=== PATIENT | female | born 1945 | race Caucasian/White ===

== ENCOUNTER 2020-04-08 12:50 | Outpatient (CLI) | payer MEDICARE, BC, SELFPAY ==
[2020-04-08 14:21] LABS: Basophils # 0.1 10^3/uL (0.0-0.1); Basophils % 0.6 %; Eosinophils # 0.5 10^3/uL (0.0-0.8); Eosinophils % 5.1 %; Hematocrit 44.9 % (37.0-47.0); Hemoglobin 13.6 g/dL (11.5-15.3); Lymphocytes # 2.1 10^3/uL (0.8-4.8); Lymphocytes % 24.1 %; Mean Corpuscular HGB Conc 30.3 g/dL (30.0-36.0); Mean Corpuscular Hemoglobin 30.5 pg (28.0-34.0); Mean Corpuscular Volume 100.7 fL (81-99); Mean Platelet Volume 10.3 fL (7.4-10.4); Monocytes # 0.9 10^3/uL (0.2-0.9); Monocytes % 9.9 %; Neutrophils # 5.3 10^3/uL (1.8-7.7); Neutrophils % 59.7 %; Nucleated Red Blood Cells % 0 %; Platelet Count 304 10^3/cmm (130-400); Red Blood Count 4.46 10^6/uL (4.1-5.3); Red Cell Distribution Width 15.1 % (12.1-15.1); White Blood Count 8.9 10^3/uL (4.0-10.0)
[2020-04-08 15:03] LABS: Carcinoembryonic Antigen 3.8 ng/mL (0.0-4.7)
[2020-04-08 15:14] LABS: Alanine Aminotransferase 15 U/L (0-33); Albumin Level 4.2 g/dL (3.5-5.2); Alkaline Phosphatase 83 IU/L (35-105); Anion Gap 19.6 (5-19); Aspartate Amino Transferase 25 U/L (0-32); Blood Urea Nitrogen 18 mg/dL (8-23); Calcium 9.7 mg/dL (8.5-10.5); Carbon Dioxide 25 mmol/L (22-29); Chloride 98 mmol/L (98-107); Globulin 3.5 g/dL (1.3-4.6); Glucose 132 mg/dL (65-115); Osmolality Calculated 284 mOsm/kg (285-295); Potassium 4.6 mmol/L (3.5-5.1); Sodium 138 mmol/L (136-145); Total Bilirubin 0.5 mg/dL (0.15-1.2); Total Protein 7.7 g/dL (6.6-8.7)
--- NOTE | 2020-04-11 07:35 | ONC FU_ITS ---
Dr. Lantigua Patient Follow-Up Note Patient: Kailyn Dyson Unit #: [id number]: 1945 Dicatated By: Jairo Lantigua M.D.Date of Visit:Apr 08, 2020 Onc Med Follow-up/Prog Note Chief Complaint: Lung cancer. History of Present Illness: This is a 74 year-old woman with non-small cell lung cancer (poorly differentiated squamous cell carcinoma) involving the right middle lobe. By clinical evaluation her disease was stage IB (T2a, N0, M0) at initial diagnosis in September 2016. She has hypertension and COPD. She had been in reasonably good general health until around June 2016 when she was admitted to the hospital with pneumonia. A follow-up chest x-ray apparently was abnormal, and a subsequent chest CT reportedly confirm the presence of a right middle lobe mass. It was apparently FDG avid by PET/CT. Her further evaluation included bronchoscopy on 07/29/2016 followed by navigational bronchoscopy on 08/13/2016, both of which were nondiagnostic. Repeat chest CT on 09/01/2016 showed a right hilar region mass measuring 2.6 x 4.4 cm compared to 3.4 x 2.6 cm on a previous study from 07/28/2016. The mediastinum showed numerous mediastinal lymph nodes which were mildly enlarged. There were no new nodules or masses in the right lung. A diffuse infiltrative process at the left lung base appear to be significantly worsened. On 09/14/2016 she again underwent navigational bronchoscopy with transbronchial biopsies of the right middle lobe mass. The procedure note described a large amount of mucoid secretions, but there was no note of any endobronchial lesion. Multiple biopsies were obtained. Two of these showed poorly differentiated squamous cell carcinoma. A third showed malignant cells consistent with non-small cell carcinoma. One of the brushings also showed malignant cells consistent with non-small cell carcinoma. Her tumor was tested for PD-L1 expression, and that did come back negative with the PD-L1 IHC 22C3 and the PD-L1 IHC 28-8 both less than 1%. Staging PET/CT on 10/16/2016 showed FDG avid mass in the perihilar region of the right middle lobe measuring 3.2 x 4.1 cm, SUV 20.6. There was only a slight increase in the size compared to the previous study from August 2016, but there was a twofold increase in hypermetabolism. There was no evidence of regional or distant metastatic disease. Thus, by clinical evaluation, her disease was stage IB (T2a, N0, M0). As she was deemed medically inoperable, she began treatment with radiation concurrently with weekly carboplatin/paclitaxel chemotherapy on 11/01/2016. She initially tolerated the chemotherapy well. However, by week 3 her treatment was held due to a drop in her white count to 2700. Her blood count subsequently recovered, and she was then able to receive the remainder of her chemotherapy on schedule. She completed 6 cycles of carboplatin/paclitaxel on 12/13/2016. She completed radiation therapy to the right lung on 12/20/2016, total dose 7,[address] on 01/25/2017 showed smaller right middle lobe neoplastic mass post radiation. There was no evidence of metastatic disease in the chest, and there were no other acute findings. She continued on observation/expectant management. Repeat brain MRI on 02/25/2017 showed no change in the lesion occupying the sella turcica measuring 1.7 x 1.8 x 1.3 cm. 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 There was no evidence of metastatic disease to the remainder of the brain. She was then followed on observation/expectant management. Her other medical illnesses have been limited to hypertension and COPD. She has history of smoking 1 pack of cigarettes daily for 50 years, but as of June 2016 she had cut down to just occasional smoking. INTERIM HISTORY: Restaging CT scans of the chest, abdomen, and pelvis on 05/16/2017 showed minimally smaller right middle lobe spiculated nodule measuring 1.2 x 1.5 cm. There was a nonspecific left mainstem bronchus endo-fireman linear filling defect, felt to most likely be due to secretions. There was no evidence of disease progression. Repeat CT scans in August 2017 and November 2017 showed no evidence of recurrence/progression. Surveillance chest CT on 06/02/2018 showed slight fibrosis along the right infrahilar bronchi in the right lower lobe and slight atelectasis at the right lung base. There was similarly appearing right perihilar nodularity. Overall, there was no evidence of disease progression. Her repeat chest CT on 08/02/2019 showed no change in the right perihilar scarring and nodularity. There was no evidence for active cardiopulmonary disease. She continued on observation/expectant management. She is seen for a followup visit. She says she is feeling okay, but she continues to have very limited activity tolerance due to her breathing. It has been particularly bad the last 3 to 4 days, she thinks because of the poor air quality. She had been hospitalized with pneumonia back in January. She is still able to do light work at home. Her ECOG score is 1. She has a poor appetite, and she has been losing weight. She has no fever or night sweats. She is short of breath with any activity, and she is on continuous oxygen. She has nonproductive cough. She does not complain of chest pain. She has no GI or complaints. She intermittently has sharp pains, but not in any particular area. She sometimes has charley horses in her legs. She does not complain of headache. She is dizzy at times, she sometimes has numbness/tingling in her hands. Medications: acetaZOLAMIDE 1 Tablet (of 250 mg) Oral daily, Atenolol 1 Tablet (of 50 mg) Oral b.i.d., Benzonatate 1 (200 mg) Capsule Oral four times a day PRN, Carvedilol 1 Tablet (of 6.25 mg) Oral b.i.d., Colace 1 Capsule (of 100 mg) Oral t.i.d., Digox 1 Tablet (of 125 mcg) Oral daily, Flexeril 1 Tablet (of 10 mg) Oral t.i.d. PRN, Furosemide 1 Tablet (of 40 mg) Oral daily, Hydrocodone-Acetaminophen 1 (5-325 mg) Tablet Oral q 4 to 6 hours PRN, Ipratropium [place] HFA 2 puff(s) (of 17 mcg/act) Aerosol, solution Inhalation four times a day, Magnesium 1 Tablet (of 100 mg) Oral b.i.d., Metoprolol Tartrate 1 Tablet (of 100 mg) Oral t.i.d., Montelukast Sodium 1 (10 mg) Tablet Oral daily, Naproxen 1 (500 mg) Tablet Oral b.i.d. PRN, Potassium Chloride ER 1 Tablet (of 10 meq) Tablet, controlled release Oral b.i.d., Protonix 1 (40 mg) Tablet, enteric coated Oral b.i.d., Sertraline HCl 1 (100 mg) Tablet Oral daily, Spironolactone 1 (25 mg) Tablet Oral b.i.d., TraZODone HCl 0.5 Tablet (of 150 mg) Oral daily, Ventolin HFA 2 puff(s) (of 108 (90 base) mcg/act) Aerosol, solution Inhalation four times a day Allergies: No Known Allergies. Review of Systems: Constitutional - She feels pretty good, but she has limited activity tolerance due to her breathing. She is able to do light work. Her appetite is poor and weight is down about 18 pounds from last visit. No fever, night sweats, or hot flashes. ECOG score is 1, ENMT - She has sinus congestion/drainage. No mouth sores. No sore throat or difficulty swallowing, Hematologic/Lymphatic - She bruises easily, Respiratory - She has shortness of breath, which has seemed to be worse lately. She wears continuous oxygen. No cough. No pleuritic pain or hemoptysis, Cardiovascular - No angina pain. No palpitations, Gastrointestinal - No nausea or vomiting. She is taking pantoprazole for heartburn, which is working well. No diarrhea or constipation. No blood in the stool or black stools, Genitourinary (F) - No dysuria or hematuria. No urinary frequency. No urgency or incontinence, Musculoskeletal - She has joint pain and she has been having cramping in her legs, Integumentary - No skin complications, Neurologic - No headache or dizziness. She has occasional numbness and tingling in her hands. No other focal neurologic symptoms, Psychiatric - Her depression symptoms are adequately managed with sertraline. She does not sleep well. Vital Signs: Performed on Apr 08, 2020 14:20 Height - 68.00 in Weight - 243.8 lbs (LOW) BSA - 2.22 sq.m BMI - 37.07 (HIGH) Temperature - 97.2 F (LOW) Pulse - 73 /min Respiration - 26 /min BP - 123/89 mm(hg) O2 Sat - 95 % (LOW) Pain - 0 Physical Examination: Constitutional - She appears short of breath with effort, Eyes - Sclerae nonicteric. Conjunctivae clear, ENMT - Mouth is dry. There are no lesions noted in the oral cavity, Hematologic/Lymphatic - No cervical, clavicular, or axillary adenopathy, Respiratory - Lungs show diminished air movement with slightly coarse breath sounds bilaterally, Cardiovascular - Heart rhythm appears regular. There is no murmur, gallop or rub noted, Abdomen - Moderately distended. Liver and spleen are not enlarged. There is no abdominal mass or ascites noted and there is no inguinal adenopathy, Extremities - Mild lower extremity edema with slight erythema. There is chronic purpura on both arms, Neurologic - No focal neurologic deficits noted. Lab/Imaging: Test performed on Apr 08, 2020 13:57 Sodium 138 mmol/L Potassium 4.6 mmol/L Chloride 98 mmol/L CO2 25 mmol/L Anion Gap 19.6 BUN 18 mg/dL Creatinine 1.2 mg/dL Cr Clearance (Est) 79.2900 mL/min Glucose 132 mg/dL Calcium 9.7 mg/dL Protein, Total 7.7 g/dL Albumin 4.2 g/dL Globulin 3.5 g/dL Bilirubin, Total 0.5 mg/dL ALT (SGPT) 15 U/L AST (SGOT) 25 U/L Alkaline Phosphatase 83 IU/L WBC 8.9 10 3/uL RBC 4.46 10 6/uL HGB 13.6 g/dL HCT 44.9 % MCV 100.7 fL MCH 30.5 pg MCHC 30.3 g/dL RDW 15.1 % Platelet Count 304 10 3/cmm MPV 10.3 fL Neutrophils 5.3 10 3/uL Lymphocytes 2.1 10 3/uL Monocytes 0.9 10 3/uL Eosinophils 0.5 10 3/uL Basophils 0.1 10 3/uL Neutrophil % 59.7 % Lymphocyte % 24.1 % Monocyte % 9.9 % Eosinophil % 5.1 % Basophils % 0.6 % NRBC % 0 % CEA 3.8 ng/mL Impression: 1. Patient with non-small cell carcinoma (poorly differentiated squamous cell carcinoma) involving the middle lobe of the right lung. The diagnosis was confirmed by navigational bronchoscopy with transbronchial biopsies on 09/14/2016. By clinical evaluation her disease was stage IB (T2a, N0, M0). She was deemed medically inoperable. 2. Her chest CT from 09/01/2016 also showed increased infiltrate at the left lung base, but that appears to have been inflammatory/infectious rather than malignant. 3. She has severe underlying COPD. 4. She has a history of hypertension, but her recent low blood pressures had been low. 5. She has nicotine dependence (cigarettes). She began treatment with radiation concurrently with carboplatin/paclitaxel chemotherapy on 11/01/2016. She tolerated the first 2 weekly chemotherapy infusions with no significant adverse effects. By week 3 her treatment was held due to a drop in her white blood cell count. She subsequently recovered, and she was able to continue the remainder of her chemotherapy on schedule. She completed 6 cycles of carboplatin/paclitaxel on 12/13/2016. She completed radiation therapy to the right lung on 12/20/2016, total dose 7,000 cGy. Overall, she tolerated the treatment well. She had significant response by restaging chest CT on 01/25/2017. 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 Her follow-up CT scans on 05/16/2017 and on 08/19/2017 showed further decrease in the right perihilar lung nodule. Her surveillance CT scan in May 2018 appeared stable, as did the study from July 2019. She has continued to show gradual decline in her performance status, mainly due to the shortness of breath. She also has been losing weight. However, thus far there has been no documented recurrence/progression of the lung cancer. Plan: She remains on observation/expectant management for the lung cancer. I will see her again in July. She will have a surveillance chest CT prior to that visit. Signed By: Jairo Lantigua M.D. <<Signature on File>>
== END 2020-04-08 12:51 | disposition home or self-care (01) ==
LOC: ONCMED 12:57
PROVIDERS: PCP Family Medicine; Visit Provider Internal Medicine Medical Oncology
DX: Z08 Encounter for follow-up examination after completed treatment for malignant neoplasm (principal); Z85.118 Personal history of other malignant neoplasm of bronchus and lung; J44.9 Chronic obstructive pulmonary disease, unspecified; I10 Essential (primary) hypertension; F17.210 Nicotine dependence, cigarettes, uncomplicated; Z92.3 Personal history of irradiation; Z92.21 Personal history of antineoplastic chemotherapy
CPT/HCPCS: 36415; 80053; 82378; 85025; G0463

== ENCOUNTER 2020-08-01 09:32 | Outpatient (CLI) | payer MEDICARE, BC, SELFPAY ==
--- NOTE | 2020-08-01 09:40 | CT_ITS ---
WS: [id number] CT scan of the chest with IV contrast, additional two-dimensional coronal and sagittal reconstruction was performed. 08/01/2020 Clinical Data: LUNG CANCER Comparison: CT chest, 07/13/2019. DLP: 934.[address] scans at [facility] use at least one of these dose optimization techniques: automat ed exposure control; mA and/or kV adjustment per patient size (includes targeted exams where dose is matched to clinical indication); or iterative reconstruction. Findings: Compared to the prior CT scan there is been an increase in the right hilar tissue which could represe nt a recurrence of the patient's carcinoma. In addition in the left lower lobe there are consolidatio ns and a pleural-based density with greatest diameter of 3.53 cm. The left lower lobe findings could represent metastatic disease. The heart size is normal with no pericardial effusion. There is coronar y artery calcification. The trachea bifurcates into the bronchi. The pulmonary arterial system and th oracic aorta demonstrate no abnormalities or dilatations. There is no axillary adenopathy. The upper abdomen shows no change from before CT/CT chest w con* [id number] Impression: 1. Increase in tissue in the right hilum which could represent recurrence of ri ght lung carcinoma. 2. Development of consolidations in the left lower lobe and a pleural-based den sity which could represent metastatic disease.
[2020-08-01 10:28] LABS: Blood Urea Nitrogen 26 mg/dL (8-23)
[2020-08-01] MEDS: iodixanol 320 mg/mL 100mL Btl IV (10:41)
== END 2020-08-01 09:33 | disposition home or self-care (01) ==
LOC: RADWPI 09:36
PROVIDERS: PCP Family Medicine; Visit Provider Internal Medicine Medical Oncology
DX: C34.2 Malignant neoplasm of middle lobe, bronchus or lung (principal); C78.02 Secondary malignant neoplasm of left lung
CPT/HCPCS: 71260; 82565; 84520; Q9967

== ENCOUNTER 2020-10-01 05:48 | Day surgery (SDC) | payer MEDICARE, BC, SELFPAY ==
[2020-09-30 08:11] VITALS: BMI 40.3
[2020-10-01] VITALS (19 sets, daily range): BP systolic 100–148; BP diastolic 53–91; PULSE 85–109; RESP 15–26; TEMP 36.3–36.8; O2SAT 81–96
--- NOTE | 2020-10-01 | CT_ITS ---
Guided Bronchoscopy Planning CT images; total exam DLP: 768.26 mGy-cm MTDD
[2020-10-01] MEDS: sodium chloride 0.9% 1,000 ML 30 ML IV (06:29)
--- NOTE | 2020-10-01 06:53 | W.PM.OPSUD ---
Surgery/Procedure H&P Update DATE OF PROCEDURE: October 01, 2020 DATE H&P PERFORMED: 09/24/20 H&P UPDATE INFORMATION: I have reviewed H&P completed within last 30 days, I have examined patient prior to procedure and No changes to prior documentation PREOP DIAGNOSIS: Suspected lung cancer PRIMARY INDICATION FOR PROCEDURE: Suspected recurrence of lung cancer PLANNED PROCEDURE: Bronchoscopy with inspection of the airway, possible endobronchial biopsy, navigational bronchoscopy guided transbronchial biopsies of the left lower lobe lung lesion, fine-needle aspiration, Cytobrush, endobronchial sound guided transbronchial needle aspiration of lymph nodes and control of bleeding. Operation Date: 10/01/20 07:00 Proposed Procedures p Veran(Not Applicable) - Tere Molina MD s Bronchoscopy R91.1 [id number](Not Applicable) - Tere Molina MD
--- NOTE | 2020-10-01 07:19 | ANES.PREANE2 ---
Pre-Anesthetic Assessment Pre-Anesthetic Assessment: Height/Weight: Height 1.68 m Weight 113.398 kg Temp Pulse Resp BP Pulse Ox 98.2 F 109 H 20 H 132/89 96 10/01/20 06:11 10/01/20 06:11 10/01/20 06:11 10/01/20 06:11 10/01/20 06:11 Preop Diagnosis: Suspected lung cancer Proposed Procedure: Operation Date: 10/01/20 07:00 Proposed Procedures p Veran(Not Applicable) - Tere Molina MD s Bronchoscopy R91.1 04641(Not Applicable) - Tere Molina MD Was Beta Elsie taken within 24 hours: Yes Last intake: Intake Last Liquid Date 09/30/20 Last Liquid Time 16:30 Last Solid Date 09/30/20 Last Solid Time 16:30 Social: Social History: Tobacco and No alcohol Exam: Pre-Anes Outpt Exam: alert, oriented x 3 and regular rate & rhythm Additional Exam Findings (including area of procedure): Decreased BS, Rhonchi Airway: Submandibular: WNL Cervical ROM: WNL MP: 2 Additional comments: Upper edentulous Pulmonary: Pulmonary: COPD Comments: Home O2, chronic steroids CV/HEM: CV/HEM: HTN : : None reported Hepatic: Hepatic: None reported GI: GI: GERD Metabolic: Metabolic: Morbid obesity Musc/sk: Comments: Chronic pain/opioid Neuropsych: Neuropsych: None reported Anesthetic Plan: ASA status: 3 Anesthesia: General Risk of > 500 ml blood loss (7ml/kg in children): No Meds/Allergies Current Medications: Current Medications Generic Name Dose Route Start Last Admin Trade Name Freq PRN Reason Stop Dose Admin Sodium Chloride 1,000 mls @ 30 ml s/hr 10/01/20 06:00 10/01/20 06:29 Sodium Chloride 0.9% IV 10/02/20 05:59 30 mls/hr .Q24H LILIAM Administration PFSH Anesthesia PFSH: Medical History (Updated 09/24/20 @ 17:45 by Tere Molina MD) Depression GERD (gastroesophageal reflux disease) HTN (hypertension) Surgical History (Updated 09/24/20 @ 17:45 by Tere Molina MD) History of bronchoscopy Status post bronchoscopy with biopsy Social History Smoking and tobacco status: current every day smoker cigarettes Years cigarettes smoked: 54 [ Other cigarette details: Hx of 1.5 PPD x 50 ] Quit status (tobacco): considering quitting Second hand smoke exposure: Yes Smoking risk assessment/counseling performed?: Yes Alcohol intake: never Lives independently: Yes Household members: none Marital status: Current occupational status: retired History of recent travel: No Current gender identity: Female Data Anesthesia Cardiac Studies: No Data to Display
[2020-10-01] MEDS: lidocaine 1% INJ 20 mL SUBCUT (07:36)
--- NOTE | 2020-10-01 08:54 | P.OP_ITS ---
Operative Report Date of procedure: October 01, 2020 Pre-op Diagnosis: Suspected lung cancer Post-op diagnosis: same Brief History: This is a 75-year-old lady with stage Ib poorly differentiated, cell lung cancer diagnosed in September 2016. The patient is undergoing bronchoscopic evaluation for suspicion for recurrence of the lesion on the recent CT scan. Procedure: Name of the procedure: Bronchoscopy with inspection of the airway, endobronchial ultrasound-guided transbronchial needle aspiration of lymph nodes, navigational bronchoscopy guided transbronchial biopsies of the left lower lobe lung lesion and control of bleeding. Indication: Suspected recurrence of lung cancer Anesthesia: General anesthesia. Local anesthesia: The vocal cords, roderick in the right and left mainstem bronchi were anesthetized with 1% lidocaine, 6 mL. Description of the procedure: The procedure was explained to the patient and the consent was obtained. The patient was brought to the OR. The patient underwent laryngeal mask airway placement for general anesthesia. Following induction of general anesthesia, the bronchoscope was advanced through the LMA. The vocal cords are normal. Vocal cords were anesthetized with 1% lidocaine, 2 mL was used. The upper and lower trachea appeared to be mildly erythematous. The roderick was sharp. The roderick, the right and left mainstem bronchi are anes thetized with 1% lidocaine. In a systematic manner bilateral bronchial tree was then examined. The bronchoscope was advanced into the left mainstem bronchus. The left upper lobe, lingula and left lower lobe bronchi were examined up to the third subsegmental level and no abnormalities were identified. The bronchoscope was then introduced into the right mainstem bronchus. The right upper lobe, r ight middle lobe and right lower lobe bronchi were examined up to the third subsegmental level and no abnormalities were identified. There is diffuse erythema throughout the airways. Excessive dynamic airway compression of the lower trachea and right and left mainstem bronchus were noted with spontaneous breathing. Using navigational bronchoscopy, left lower lobe lateral segment transbronchial biopsies of the mass were obtained. 5 samples were obtained. The endobronchial ultrasound was introduced through the ET tube. No significant mediastinal lymphadenopathy was identified. Right hilar lymphadenopathy surrounding the pulmonary artery was noted. Transbronchial needle biopsy was performed from the right hilar lymph node. There was grade 2 bleeding following the performance of the fine-needle aspirations. At the end of the procedure there was no active bleeding. Samples: 1. The transbronchial biopsies were sent for histopathology. 2. The transbronchial needle aspiration was sent for histopathology and cytology. Complications: There was no immediate complications. Chest x-ray: Pending
--- NOTE | 2020-10-01 08:59 | XR_ITS ---
WS: [id number] PORTABLE CHEST HISTORY: post bronchoscopy COMPARISON: 02/16/[address] 08/01/2020 Increased soft tissue centered over the RIGHT hilum and over the central RIGHT lung. This corresponds to the area of adenopathy seen on a recent chest CT. Increased density may be due to small amount of bleeding from the recent bronchoscopy if biopsy was obtained. Otherwise chronic changes of emphysema . No pleural effusion or pneumothorax. Cardiac size: Mildly enlarged cardiac silhouette. Mediastinum/Aorta: Mild atherosclerosis aorta. No osseous abnormality seen. XR/XR chest 1V portable [id number] IMPRESSION: 1. Prominent soft tissue thickening centered over the RIGHT hilum extending in to the mid RIGHT lung. Corresponds to area of adenopathy and atelectasis seen o n a recent CT of 08/01/2020. Increased density may be due to small amount of bl eeding from the recent bronchoscopy if biopsy was obtained. There is no signifi cant complication. 2. No pneumothorax.
[2020-10-01] MEDS: ipratropium-albuterol 3 mL Neb INHALATION (09:43)
[2020-10-01] MEDS: diphenhydrAMINE 50 mg/mL SDV 1mL 12.5 MG IVP (09:47)
--- NOTE | 2020-10-01 10:33 | ANE.PACU2 ---
Inpatient post-anesthesia follow up: Airway intact: Yes Vital signs: Temperature 97.6 F Pulse Rate 90 Respiratory Rate 18 Blood Pressure 134/82 Pulse Oximetry 90 Oxygen Delivery Me thod Nasal Cannula Oxygen Flow Rate 2 Fraction of Inspir ed Oxygen Hydration adequate: Yes Nausea and vomiting: No Pain level: 1 Mental status: Baseline Additional Comments: Some difficulty with oxygenation, required supplemental O2 and breathing tx.
--- NOTE | 2020-10-01 14:04 | SUR.OPER ---
EBUS BALLOON REMOVED INTACT.
== END 2020-10-01 10:37 | disposition home or self-care (01) ==
PROVIDERS: PCP Family Medicine; Visit Provider Internal Medicine Critical Care Medicine
PROC: 0BJ08ZZ Inspection of Tracheobronchial Tree, Via Natural or Artificial Opening Endoscopic (ICD-10-PCS; CPT 31622; principal; 2020-10-01 07:00)
PROC: BB4BZZZ Ultrasonography of Pleura (ICD-10-PCS; CPT 31628; 2020-10-01 07:00)
DX: R91.1 Solitary pulmonary nodule (principal); J44.9 Chronic obstructive pulmonary disease, unspecified; I10 Essential (primary) hypertension; E66.01 Morbid (severe) obesity due to excess calories; K21.9 Gastro-esophageal reflux disease without esophagitis; Z99.81 Dependence on supplemental oxygen; G89.29 Other chronic pain; Z79.891 Long term (current) use of opiate analgesic; F32.9 Major depressive disorder, single episode, unspecified
CPT/HCPCS: 31628; 31652; 12345; 71045; 77011; 80500; 88305; J0330; J1100; J1200; J2704; J3010; J3490; J7030; J7611